=== PATIENT | female | born 1945 | race Caucasian/White ===

== ENCOUNTER → 2022-08-17 08:09 | Outpatient (BNVA) | payer MEDICARE, OTHER, SELFPAY | PROVIDERS: Referring Provider Nurse Practitioner; Visit Provider Nurse Practitioner Family | DX: D23.72 Other benign neoplasm of skin of left lower limb, including hip (principal); L81.4 Other melanin hyperpigmentation; D22.62 Melanocytic nevi of left upper limb, including shoulder; L82.1 Other seborrheic keratosis; L98.8 Other specified disorders of the skin and subcutaneous tissue; L82.0 Inflamed seborrheic keratosis; Z71.89 Other specified counseling; L65.0 Telogen effluvium; L21.8 Other seborrheic dermatitis | CPT/HCPCS: 17110; 99204 ==

== ENCOUNTER → 2023-04-05 09:36 | Outpatient (BNVA) | payer MEDICARE, OTHER, SELFPAY | PROVIDERS: Visit Provider Nurse Practitioner Family | DX: L66.1 Lichen planopilaris (principal); L82.0 Inflamed seborrheic keratosis; L57.0 Actinic keratosis; L81.4 Other melanin hyperpigmentation; D22.39 Melanocytic nevi of other parts of face | CPT/HCPCS: 11104; 17000; 17110; 99213 ==

== ENCOUNTER 2023-06-23 13:41 | Outpatient (CLI) | payer MEDICARE, OTHER, SELFPAY ==
--- NOTE | 2023-06-23 13:52 | MM_ITS ---
WS: [id number] BILATERAL 3D TOMOSYNTHESIS DIGITAL SCREENING MAMMOGRAPHY WITH CAD CLINICAL INFORMATION: SCREENING HISTORY: Screening mammogram. No current complaints. COMPARISON: None. TECHNIQUE: Bilateral CC and MLO views. FINDINGS: Scattered fibroglandular densities bilaterally. No suspicious focal mass, asymmetry, calcifications, or architectural distortion. No evidence of malignancy. Bilateral breast implants appear intact. A fe w benign calcifications. IMPRESSION: MM/[place] [id number] BI-RADS: 2-Benign FOLLOW UP: 1 Year Follow-up Recommend return to annual screening mammography.
== END 2023-06-23 13:42 | disposition home or self-care (01) ==
PROVIDERS: PCP Family Medicine; Visit Provider Family Medicine
DX: Z12.31 Encounter for screening mammogram for malignant neoplasm of breast (principal)
CPT/HCPCS: 77063; 77067

== ENCOUNTER → 2024-02-26 09:22 | Outpatient (BNVA) | payer MEDICARE, OTHER, SELFPAY | PROVIDERS: PCP Family Medicine; Visit Provider Nurse Practitioner Family | DX: D23.72 Other benign neoplasm of skin of left lower limb, including hip (principal); L81.4 Other melanin hyperpigmentation; L82.1 Other seborrheic keratosis; L98.8 Other specified disorders of the skin and subcutaneous tissue; D36.14 Benign neoplasm of peripheral nerves and autonomic nervous system of thorax; L57.8 Other skin changes due to chronic exposure to nonionizing radiation; L66.11 Classic lichen planopilaris; L21.8 Other seborrheic dermatitis; L82.0 Inflamed seborrheic keratosis | CPT/HCPCS: 17000; 17110; 99214 ==

== ENCOUNTER → 2024-04-30 13:31 | Outpatient (BNVA) | payer MEDICARE, OTHER, SELFPAY | PROVIDERS: PCP Family Medicine; Visit Provider Nurse Practitioner Family | DX: D23.72 Other benign neoplasm of skin of left lower limb, including hip (principal); L81.4 Other melanin hyperpigmentation; L98.8 Other specified disorders of the skin and subcutaneous tissue; D36.14 Benign neoplasm of peripheral nerves and autonomic nervous system of thorax; L57.8 Other skin changes due to chronic exposure to nonionizing radiation; L66.11 Classic lichen planopilaris; L57.0 Actinic keratosis | CPT/HCPCS: 17000; 99213 ==

== ENCOUNTER → 2024-11-20 10:34 | Outpatient (BNVA) | payer MEDICARE, OTHER, SELFPAY | PROVIDERS: PCP Family Medicine; Visit Provider Nurse Practitioner Family | DX: D22.5 Melanocytic nevi of trunk (principal); L82.1 Other seborrheic keratosis; L57.8 Other skin changes due to chronic exposure to nonionizing radiation; L81.4 Other melanin hyperpigmentation; D48.5 Neoplasm of uncertain behavior of skin | CPT/HCPCS: 11102; 99213 ==

== ENCOUNTER → 2025-01-03 07:47 | Outpatient (BNVA) | payer MEDICARE, OTHER, SELFPAY | PROVIDERS: PCP Family Medicine; Visit Provider Dermatology | DX: D22.72 Melanocytic nevi of left lower limb, including hip (principal); D22.5 Melanocytic nevi of trunk | CPT/HCPCS: 11602; 12032; 13101; 99212 ==